=== PATIENT | male | born 1975 | race African-American/Black ===

== ENCOUNTER → 2017-06-25 | Outpatient (CLI) | payer OTHER ==
--- NOTE | 2017-06-25 22:35 | CONS ---
CONSULTATION REASON FOR CONSULTATION: Sleep apnea. A pleasant 41-year-old, morbidly obese, -[place] male patient who is coming in with symptoms and with features typical of obstructive sleep apnea. The patient snores very loud. He quits breathing as witnessed by his girlfriend and by multiple healthcare professionals and nurses during previous hospital stays. The patient has been also noted to quit breathing while performing outpatient endoscopy under conscious sedation. For all these reasons, the patient came in to be evaluated. The patient admits that he snores loud and he wakes up gasping for air. He is at a point with his sleep is so fragmented he cannot sleep at night and his sleep is very much fragmented and he is having excessive tiredness and fatigue throughout the day. He has he has a dry mouth when he wakes up in the morning. He has he has been having difficulty with concentration. He is falling asleep throughout the day and he is being considered to be a hazard for falling asleep while driving and for that reason, he has not been driving an automobile. His sleep schedule is been quite erratic and irregular. He goes to bed after midnight and he tries to get up at 6:00 a.m. in the morning. He has gained a significant amount of weight over the years. He has a problem with alcoholism and quit and he has been "sober" for the past 2 months. He smokes cigarettes. PAST MEDICAL HISTORY: 1. Morbid obesity. 2. Alcoholism. 3. Hiatal hernia. 4. Depression. 5. Acid reflux. 6. Hypertension. 7. Diabetes mellitus. SURGICAL HISTORY: Includes none. ALLERGIES: None. MEDICATIONS: Unable to provide the medication list. He is not sure of the exact medication. He cannot recall. A blood pressure medication and metformin. SOCIAL HISTORY: He smokes cigarettes, 1 pack of cigarettes a day. Alcoholism, sober for the past 2 months. No history of IV drug use. FAMILY HISTORY: Negative for sleep apnea. REVIEW OF SYSTEMS: Twelve-point review of system was done. It is positive for loud snoring, sleep fragmentation, difficulties with insomnia/sleep maintenance insomnia. Grinding of the teeth is present. He is restless at night. He wakes up gasping for air. He wakes up choking. He has increased anxiety and panic and palpitation and occasional heartburn. He has been also having issues with depression. The patient has also problems with claustrophobia. No sleep paralysis. No hallucinations. No cataplexy. His BP is 165/92, pulse 100, respirations 16, temperature 98.6, saturation 96% on room air. Neck size is 21 inches. Weight is 280. Height is 5 feet 10 inches. GENERAL APPEARANCE: Obese calm comfortable, no acute distress. Head is atraumatic, normocephalic. Neck is supple, short. Mallampati class IV. Redundant uvula. Very poor dental hygiene. Multiple missing teeth and decayed teeth also in the upper and lower jaw. LUNGS: Diminished breath sounds bilaterally. HEART: Sounds regular rate and rhythm. Normal S1, S2. No S3. No murmurs. ABDOMEN: Obese, soft, nontender. Organs cannot be adequately palpated. There was direct tenderness, rebound tenderness or guarding. EXTREMITIES: Trace edema. There is no cyanosis or clubbing. NEUROLOGIC: Alert and oriented x3. There are no focal neurological deficits. PSYCHIATRIC: Positive for anxiety and depression and possibly some claustrophobia. Skin is negative for any open wounds or ulceration. IMPRESSION: 1. Obstructive sleep apnea highly suspected based on the clinical and anatomic features. 2. Sleep fragmentation. Rule out sleep maintenance insomnia possibly related to underlying sleep breathing disorder. 3. Morbid obesity with a BMI of 40. 4. Alcoholism, sober for the past 2 months. 5. Anxiety/depression. 6. Hiatal hernia. 7. Acid reflux. 8. Hypertension. 9. Diabetes mellitus. PLAN: 1. Weight loss. 2. Do not drive until the workup for sleep apnea is complete. 3. Implement good sleep hygiene measures. 4. Issues related to sleep hygiene were discussed. 5. Absolutely no alcohol drinking and the patient has been sober for 2 months. 6. Proceed with a sleep study looking for any significant sleep breathing disorder and treat accordingly. MMODL / IJN: [id number] /
== END | disposition home or self-care (01) ==
LOC: SLEEP 16:07
PROVIDERS: ATTEND Internal Medicine Critical Care Medicine
DX: R06.83 Snoring (principal); R06.89 Other abnormalities of breathing; E66.01 Morbid (severe) obesity due to excess calories; F10.20 Alcohol dependence, uncomplicated; F32.9 Major depressive disorder, single episode, unspecified; F41.9 Anxiety disorder, unspecified; K44.9 Diaphragmatic hernia without obstruction or gangrene; K21.9 Gastro-esophageal reflux disease without esophagitis; I10 Essential (primary) hypertension; E11.9 Type 2 diabetes mellitus without complications; F17.210 Nicotine dependence, cigarettes, uncomplicated; Z68.41 Body mass index [BMI] 40.0-44.9, adult
CPT/HCPCS: 99211

== ENCOUNTER → 2017-09-04 | Outpatient (CLI) | payer OTHER ==
--- NOTE | 2017-09-04 11:18 | ECHOF ---
Referral Reason:R06.02 Shortness of breath,Hypertention I10 MEASUREMENTS -------- HEIGHT: 177.8 cm WEIGHT: 128.8 kg BP: 139/84 RVIDd: 3.4 cm (< 3.3) IVSd: 1.3 cm (0.6 - 1.1) LVIDd: 4.7 cm (3.9 - 5.3) LVPWd: 1.3 cm (0.6 - 1.1) IVSs: 1.9 cm LVIDs: 2.9 cm LVPWs: 1.8 cm LAESV Index (A-L): 21.16 ml/m Ao Diam: 3.0 cm (2.0 - 3.7) AV Cusp: 2.1 cm (1.5 - 2.6) LA Diam: 4.0 cm (2.7 - 3.8) MV E Madhav: 0.76 m/s MV DecT: 425 ms MV A Madhav: 0.78 m/s MV E/A Ratio: 0.97 RAP: 5.00 mmHg RVSP: 10.82 mmHg FINDINGS -------- Sinus rhythm. This was a technically adequate study. The left ventricular size is normal. There is mild concentric left ventricular hypertrophy. Overa ll left ventricular systolic function is normal with, an EF between 55 - 60 %. The right ventricle is mildly enlarged. Normal LA size by volume 22+/-6 ml/m2. The right atrium is normal in size. The aortic valve is trileaflet and appears structurally normal. Trace amount of aortic regurgitatio n. There is no evidence of aortic stenosis. The mitral valve leaflets are mildly thickened. There is trace mitral regurgitation. Trace tricuspid regurgitation present. Right ventricular systolic pressure is normal at < 35 mmHg. There is no evidence of pulmonary hypertension. Trace/mild (physiologic) pulmonic regurgitation. The aortic root size is normal. Normal inferior vena cava with normal inspiratory collapse consistent with estimated right atrial pre ssure of 5 mmHg. There is no pericardial effusion. CONCLUSIONS -------- 1. Sinus rhythm. 2. This was a technically adequate study. 3. The left ventricular size is normal. 4. There is mild concentric left ventricular hypertrophy. 5. Overall left ventricular systolic function is normal with, an EF between 55 - 60 %. 6. The right ventricle is mildly enlarged. 7. Normal LA size by volume 22+/-6 ml/m2. 8. The aortic valve is trileaflet and appears structurally normal. 9. Trace amount of aortic regurgitation. 10. The mitral valve leaflets are mildly thickened. 11. There is trace mitral regurgitation. 12. Trace tricuspid regurgitation present. 13. Right ventricular systolic pressure is normal at < 35 mmHg. 14. There is no evidence of pulmonary hypertension. 15. Trace/mild (physiologic) pulmonic regurgitation. 16. The aortic root size is normal. 17. There is no pericardial effusion. CORRECTION WORKER: Hermann De Anda RDCS
== END | disposition home or self-care (01) ==
LOC: RADECHMAIN 08:21
PROVIDERS: ATTEND Internal Medicine Cardiovascular Disease
DX: I51.7 Cardiomegaly (principal); I10 Essential (primary) hypertension; E11.9 Type 2 diabetes mellitus without complications
CPT/HCPCS: 93306

== ENCOUNTER → 2017-10-31 | Outpatient (CLI) | payer OTHER | END | disposition home or self-care (01) | LOC: RADCTMAIN 11:48 | PROVIDERS: ATTEND Internal Medicine | DX: Z53.9 Procedure and treatment not carried out, unspecified reason (principal) ==

== ENCOUNTER → 2017-11-12 | Outpatient (CLI) | payer OTHER ==
[2017-11-12 18:53] LABS: Blood Urea Nitrogen 12 mg/dL (9-20)
--- NOTE | 2017-11-12 23:01 | CT ---
EXAMINATION TYPE: CT chest w con DATE OF EXAM: 11/12/2017 COMPARISON: Chest x-ray September 24, 2017. HISTORY: SOB x1 year per patient. Pulmonary nodule per order. CT DLP: 919.4 mGycm. Automated Exposure Control for Dose Reduction was Utilized. TECHNIQUE: CT scan of the thorax is performed following with IV Contrast, patient injected with 100 mL of Isovue 300. FINDINGS: LUNGS: There is respiratory motion artifact degradation making evaluation suboptimal particularly for subcentimeter nodularity. No suspicious parenchymal nodules or masses are clearly identified. No kym picious consolidation or focal groundglass opacity is seen. No pleural effusion or pneumothorax is no cristo bilaterally. MEDIASTINUM: There are no greater than 1 cm hilar or mediastinal lymph nodes. There is prominent but subcentimeter right pericardial cyst or lymph node axial image 36. No pericardial effusion is seen. Heart size is upper limits of normal. Mild dilatation of distal esophagus is present. OTHER: Small degree of bilateral gynecomastia is present. Visualized liver is hypodense suggesting fa tty infiltration. IMPRESSION: Suboptimal study without suspicious acute or chronic pulmonary process.
== END | disposition home or self-care (01) ==
LOC: RADCTMAIN 18:02
PROVIDERS: ATTEND Internal Medicine
DX: R91.8 Other nonspecific abnormal finding of lung field (principal)
CPT/HCPCS: 82565; 84520; 71260; 36415; Q9967